=== PATIENT | male | born 1960 | race Caucasian/White ===

== ENCOUNTER 2022-05-07 05:37 | Day surgery (SDC) | payer OTHER ==
[2022-05-07] MEDS ORDERED: ANESTHESIA TRAY IN PYXIS 1 EA TRAY MC ONE (05:47)
[2022-05-07] MEDS ORDERED: BUPIVACAINE 0.25% 75 MG/30 ML VIAL ONE (05:48)
[2022-05-07] MEDS ORDERED: BUPIVACAINE 0.5 % PF 150 MG/30 ML VIAL ONE ×2 (05:48→06:07)
[2022-05-07] MEDS ORDERED: EPINEPHRINE (1:1000) 1 MG/ML AMPUL ONE (05:48)
[2022-05-07] MEDS ORDERED: FENTANYL PF 100MCG/2ML AMPUL ONE (06:06)
[2022-05-07] MEDS ORDERED: HYDROMORPHONE INJ 2 MG/ML DISP.SYRIN ONE (06:06)
[2022-05-07] MEDS ORDERED: MIDAZOLAM HCL 2 MG/2ML VIAL ONE (06:07)
[2022-05-07] MEDS ORDERED: ROCURONIUM BROMIDE 50 MG/5 ML ONE (06:07)
[2022-05-07] MEDS ORDERED: FAMOTIDINE/PF INJ 20 MG/2 ML VIAL IV ONE (06:07)
== END 2022-05-07 10:50 | disposition home or self-care (01) ==
LOC: DS 05:37
PROVIDERS: ATTEND Specialist
DX: M75.41 Impingement syndrome of right shoulder (principal); I10 Essential (primary) hypertension; E66.3 Overweight; N40.0 Benign prostatic hyperplasia without lower urinary tract symptoms; Z98.890 Other specified postprocedural states; Z79.899 Other long term (current) drug therapy
CPT/HCPCS: 29807; 29824; J0690; J3490 ×6; J2704; J0171; J3010; J1170; J2765; J2405; J7030; J2250; A4217; A4565